=== PATIENT | male | born 1995 | race African-American/Black ===

== ENCOUNTER 2018-08-07 05:44 | Emergency (ER) | payer MEDICAID ==
[~2018-08-07] VITALS: Ht 190.5 cm; Wt 78.0 kg
[2018-08-07] MEDS ORDERED: KETOROLAC 60MG/2ML VIAL IM ONE (10:30)
[2018-08-07 11:53] VITALS: BP 109/52
== END 2018-08-07 11:55 | disposition home or self-care (01) ==
LOC: ER 06:46
DX: M54.2 Cervicalgia (principal); Z98.890 Other specified postprocedural states
CPT/HCPCS: 96372; 99283; J1885

== ENCOUNTER 2019-06-05 04:35 | Emergency (ER) | payer MEDICAID ==
[~2019-06-05] VITALS: Ht 188 cm; Wt 75.0 kg
[2019-06-05 05:20] LABS: BASOPHILS % 1.1 % (0.0-2.0); EOSINOPHILS % 2.6 % (0.0-5.0); HEMATOCRIT. 38.8 % (42.0-52.0); HEMOGLOBIN. 13.1 g/dL (14.0-18.0); MEAN CORPUSCULAR HEMOGLOBIN 29.1 pg (28.0-32.0); MEAN CORPUSCULAR VOLUME 86.3 fL (80.0-94.0); MONOCYTES % 10.5 % (2.0-8.0); NEUTROPHILS % 55.8 % (40.0-76.0); PLATELET 142 x1000/uL (130-400)
[2019-06-05 05:32] LABS: CHLORIDE 105 mEq/L (98-107)
[2019-06-05 05:37] LABS: ETHANOL BLOOD < 10 mg/dL
[2019-06-05 13:20] VITALS: BP 122/80
== END 2019-06-05 15:43 | disposition left against medical advice (07) ==
LOC: ER 04:35
DX: Z04.89 Encounter for examination and observation for other specified reasons (principal); Z59.0 Homelessness
CPT/HCPCS: 36415; 80320; 99283; G0480